=== PATIENT | male | born 1975 | race Caucasian/White ===

== ENCOUNTER 2020-05-26 15:42 | Outpatient (REF) | payer OTHER, SELFPAY | END 2020-05-26 15:43 | disposition home or self-care (01) | LOC: HO.LAB 15:42 | PROVIDERS: Visit Provider Internal Medicine | DX: Z20.828 Contact with and (suspected) exposure to other viral communicable diseases (principal) | CPT/HCPCS: C9803; U0003 ==

== ENCOUNTER 2020-06-07 12:47 | Outpatient (REF) | payer OTHER, SELFPAY | END 2020-06-07 12:48 | disposition home or self-care (01) | LOC: HO.LAB 12:47 | PROVIDERS: Visit Provider Internal Medicine | DX: Z20.822 Contact with and (suspected) exposure to COVID-19 (principal) | CPT/HCPCS: 36415; C9803; U0003 ==

== ENCOUNTER 2022-09-21 08:48 | Emergency (ER) | payer OTHER, SELFPAY ==
[2022-09-21 09:02] VITALS: BP 124/92; PULSE 84; RESP 18; TEMP 36.6; O2SAT 98; BMI 25.8
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
[2022-09-21] MEDS: Ketorolac Tromethamine 30 MG/ML VIAL IM (10:09)
== END 2022-09-21 10:11 | disposition home or self-care (01) ==
PROVIDERS: Emergency Provider Emergency Medicine
DX: S39.012A Strain of muscle, fascia and tendon of lower back, initial encounter (principal); V43.52XA Car driver injured in collision with other type car in traffic accident, initial encounter; Y93.89 Activity, other specified; Y92.414 Local residential or business street as the place of occurrence of the external cause; Y99.9 Unspecified external cause status
CPT/HCPCS: 96372; 99283; 99284; J1885